=== PATIENT | male | born 1980 | race Two or more races ===

== ENCOUNTER → 2020-03-12 | Outpatient (CLI) | payer OTHER ==
[~2020-03-12] MED LIST: D3 H400T PO; MULTCAP PO; NEUR300C PO; PROZ10CA7 PO; PROZ20CA11 PO; WELLTAB38 PO
== END ==
LOC: EDUNIT# 10:45 → M LABSMTC 10:46
PROVIDERS: ATTEND Anesthesiology
DX: Z03.818 Encounter for observation for suspected exposure to other biological agents ruled out (principal); Z11.59 Encounter for screening for other viral diseases

== ENCOUNTER → 2020-03-14 | Outpatient (CLI) | payer OTHER ==
[2020-03-14 13:04] LABS: HEMATOCRIT 43.3 % (42.0-52.0); HEMOGLOBIN 14.4 g/dl (13.5-17.5); MEAN CORPUSCULAR HEMOGLOBIN 29.2 pg (27.0-33.0); MEAN CORPUSCULAR HGB CONC 33.3 g/dl (32.0-36.5); MEAN CORPUSCULAR VOLUME 87.8 fl (80.0-96.0); PLATELET COUNT, AUTOMATED 281 10^3/uL (150-450); RED BLOOD COUNT 4.93 10^6/uL (4.30-6.10); WHITE BLOOD COUNT 7.5 10^3/uL (4.0-10.0)
--- NOTE | 2020-03-14 13:11 | ECGEPIP ---
[facility] [place] Test Date: 2020-03-14 Pat Name: CYNDY CHAUDHRY Department: Room: - Gender: Male Melt Room Operator: LORELEI : 1980 Requested By: Yanick Purdy Order Number: [id number] Reading MD: Leslie Coe Measurements Intervals Ethel Rate: 48 P: 82 WA: 149 QRS: 53 QRSD: 89 T: 35 QT: 394 QTc: 353 Interpretive Statements SINUS BRADYCARDIA ST ELEVATION, PROBABLY EARLY REPOLARIZATION NO PRIOR Electronically Signed on 03-14-2020 13:10:28 EDT by Leslie Coe
--- NOTE | 2020-03-14 16:22 | REP ---
REASON: History of tuberculosis. There are no priors for comparison. FINDINGS: The superior mediastinal structures are midline. The cardiac silhouette is unremarkable in size, shape, and position. The diaphragmatic surfaces of the lungs are regular, and the costophrenic angles are clear. The pulmonary gutierres are clear. The imaged osseous structures are intact. IMPRESSION: There is no acute cardiopulmonary disease, if clinical suspicion is high CT is more sensitive. Electronically Signed by Carlos Ocampo DO 03/14/2020 04:59 P
== END ==
LOC: M LAB 12:33
PROVIDERS: ATTEND Anesthesiology
DX: M62.9 Disorder of muscle, unspecified (principal)

== ENCOUNTER 2020-03-15 08:19 | Day surgery (SDC) | payer OTHER ==
[~2020-03-15] VITALS: Ht 170.2 cm; Wt 73.0 kg
[~2020-03-15 08:19] MED LIST changes: +LIDOCAINE 2% 100MG/5ML SDV (FOR ANES.) As Ordered ONE; +MIDAZOLAM INJ 2MG/2ML VIAL (J2250 PER 1MG) As Ordered ONE; +ROCURONIUM BROMIDE 50 MG/5 ML VIAL As Ordered ONE; +ceFAZolin SOD 2 GM in IV 1 EA IV ONE; +fentaNYL 250 MCG/5 ML INJECTION (J3010) As Ordered ONE; +propofoL 200 MG/20 ML VIAL As Ordered ONE
[2020-03-15] MEDS ORDERED: EPINEPHrine INJ 1 MG/ML 1ML AMP ONE (08:20)
[2020-03-15] MEDS ORDERED: ROPIvacaine 0.5% 30ML INJECTION (J2795 PER 1MG) ONE (08:20)
[2020-03-15] MEDS ORDERED: dexameTHASONE 10MG/1ML VIAL PRES.FREE (J1100 PER 1MG) ONE (08:20)
[2020-03-15] MEDS ORDERED: MIDAZOLAM INJ 2MG/2ML VIAL (J2250 PER 1MG) As Ordered ONE (09:34)
[2020-03-15] MEDS ORDERED: fentaNYL 100 MCG/2 ML INJECTION (J3010) As Ordered ONE (09:34)
[2020-03-15] MEDS ORDERED: LR 1,000 ML IV ONE (10:00)
[2020-03-15] MEDS ORDERED: EPINEPHrine 1MG/ML INJ 30ML MD-VIAL As Ordered ONE (10:07)
[2020-03-15] MEDS ORDERED: fentaNYL 100 MCG/2 ML INJECTION (J3010) IV SCH (10:30)
[2020-03-15] MEDS ORDERED: MIDAZOLAM INJ 2MG/2ML VIAL (J2250 PER 1MG) IV ONE (10:30)
[2020-03-15] MEDS ORDERED: dexameTHASONE 4 MG/ML 1ML VIAL (J1100 PER 1MG) As Ordered ONE (11:01)
[2020-03-15] MEDS ORDERED: KETOROLAC 60MG 2ML VIAL As Ordered ONE (11:01)
[2020-03-15] MEDS ORDERED: ONDANSETRON 4MG/2ML VIAL As Ordered ONE (11:01)
[2020-03-15] MEDS ORDERED: ACETAMINOPHEN 1000MG 100ML IV BTL (OFIRMEV) (J0131 PER 10MG) As Ordered ONE (11:02)
[2020-03-15] MEDS ORDERED: NEOSTIGMINE 10MG/10ML VIAL (J2710 PER 0.5MG) As Ordered ONE (12:03)
[2020-03-15] MEDS ORDERED: GLYCOPYRROLATE INJ 0.2 MG/ML 2 ML VIAL As Ordered ONE (12:04)
[2020-03-15] MEDS ORDERED: ONDANSETRON 4MG/2ML VIAL IV PRN (13:15)
[2020-03-15] MEDS ORDERED: KETOROLAC 30 MG/ML 1ML VIAL IV PRN (13:15)
[2020-03-15] MEDS ORDERED: METOCLOPRAMIDE INJ 10MG/2ML VIAL (J2765 PER 1) IV PRN (13:15)
[2020-03-15] MEDS ORDERED: LR 1,000 ML IV SCH (13:15)
[2020-03-15] MEDS ORDERED: PERCOCET 5MG/325MG TAB PO PRN (13:15)
[2020-03-15 15:36] VITALS: BP 116/68
--- NOTE | 2020-03-15 20:37 | RO ---
DATE OF PROCEDURE: 03/15/2020 PREOPERATIVE DIAGNOSES: 1. Right shoulder instability. 2. Right shoulder acromioclavicular (AC) joint arthritis. POSTOPERATIVE DIAGNOSES: 1. Right shoulder instability with anterior and posterior labral tearing. 2. Right shoulder glenoid chondromalacia. 3. Right shoulder partial articular rotator cuff tear (subscapularis). 4. Right shoulder acromioclavicular joint arthritis. PROCEDURE: 1. Right shoulder arthroscopic anterior and posterior labral repair. 2. Right shoulder arthroscopic rotator cuff debridement and chondroplasty. 3. Right shoulder arthroscopic distal clavicle excision. SURGEON: Dr. Franklin Tran PHILOSOPHY AND RELIGION INSTRUCTOR: JOSE CARLOS Genao ANESTHESIA: General with preoperative nerve block. IV FLUIDS: Lactated Ringer's. ESTIMATED BLOOD LOSS: 10 mL. IMPLANTS: Arthrex 3 mm SutureTak times one and Arthrex 2.9 mm PushLock times three with labral tape. CLOSURE: Nylon. DESCRIPTION OF PROCEDURE: Patient identified in preoperative holding area. The right shoulder was marked. He had interscalene nerve block. He was brought to the operating room, placed supine on well-padded operating room (OR) table. Examination under general anesthesia revealed 180 degrees forward flexion, 90 of external rotation. He had a grade 2 plus anterior load and shift, grade 2 posterior load and shift. He was then placed in a left side down lateral decubitus position with an axillary roll, and all bony prominences well padded. He was placed in the Arthrex STaR Sleeve lateral decubitus traction hartmann, 10 pounds of traction. Right shoulder prepped and draped in the normal sterile fashion with Chloraprep. He received appropriate IV antibiotics within 1 hour of incision. Prior to incision time-out performed per hospital protocol. Radha was present for the entire procedure and participated in all essential portions of the procedure. This included patient positioning, draping, holding the arthroscope, providing traction to the arm to assist with drilling and passing sutures and tying knots. She also performed the wound closure and applied the dressing and sling. The right shoulder was insufflated with lactated Ringer's. Modified posterolateral portal made with #11 blade. 30-degree arthroscope was introduced into the joint. Diagnostic arthroscopy was carried out revealing an intact infra and supraspinatus. There was partial tearing of the upper border of the subscapularis but no lift off. Long head of the biceps was unremarkable. There was chondromalacia of the inferior and anterior glenoid. Humeral head in good condition. There was tearing of the anterior-inferior labrum with an absent bumper. There was deficient tissue anteriorly as well. The labral tearing extended around the 6 o'clock position towards the 8 o'clock, 8:30 position. An anterior working portal was established through the rotator interval just off the subscapularis. On probing the long head of the biceps, the superior labral anchor was stable. I performed a chondroplasty of the glenoid, and I debrided the partial tear of the upper subscapularis. This did not meet criteria for repair. There was a positive drive-through sign. Humeral head was subluxated inferiorly and somewhat anterior. An accessory superolateral portal was established through the rotator interval just anterior to the biceps. Hooked cautery was used to develop the plane between labrum and articular cartilage. Labral elevators then used to mobilize the capsule and labrum off the anterior glenoid neck. There was decent tissue anterior-inferior, but at the equator, the tissue quality was poor. I then drilled and placed a 3 mm SutureTak at the 5 o'clock position. A SutureLasso was used to pass all four limbs of suture through the anterior capsule and labrum with the most inferior sutures grasping the anterior band of the inferior glenohumeral ligament. Sutures were tied using alternating half-hitch technique with the knot pusher as my case assistant applied a posterior lever push to the proximal humerus. Sutures were cut with the bias binding cutter. This nicely restored the anterior-inferior bumper. Next, the SutureLasso was used to shuttle labral tape through the capsule and labrum at the 3:30 position. The appropriate drill was used to create a socket in the glenoid, the anchor was tensioned, advanced and then malleted per routine with excellent fixation. The patient did not have a history of a traumatic dislocation despite his symptoms of instability and given the deficient anterior-superior capsule, there really was no need for a third anchor. The camera was placed in the anterior-superior portal and then the posterior inferior labrum was inspected. There was a definite tear there with deficient bumper. Hooked cautery was used through the posterior portal to develop a plane between labrum and cartilage, and then the labral elevators used to subperiosteally dissect and mobilize the tissue. Curved SutureLasso was used to shuttle labral tape through the capsule and labrum at the 6 o'clock position, and I drilled at the 6:30 position. PushLock anchor was secured per routine. I took great care not to grasp too much capsule to avoid over tightening. These steps were repeated shuttling labral tape through capsule and labrum at the 7:30 position. Another PushLock anchor was placed per routine with excellent fixation. This completed the posterior portion of labral repair. Humeral head was centrally located on the glenoid. Shoulder was irrigated and drained. Arthroscope placed in the subacromial space, lateral working portal established, and an extensive bursectomy performed with shaver and cautery. There was minimal subacromial spur, no acromioplasty. Attention was then turned to the distal clavicle excision. There was near bone on bone contact, so cautery was used to clear soft tissue off of the AC joint and then a bur used to remove approximately 7 to 8 mm of the distal clavicle. The scope was intermittently placed into the anterior portal to ensure no posterior or superior bone remained. Shoulder was then irrigated and drained. Portals were closed with a nylon suture. Bulky sterile dressing applied. He was then carefully placed into the ARC 2 sling in the gunslinger position. He was extubated, transferred to the post-anesthesia care unit (PACU) in stable condition. DISPOSITION: The patient will be in the sling all the time for the first roughly 5 weeks. His physical therapy must start the week of March 25, 2020. He will follow up for suture removal and then a month later.
== END 2020-03-15 16:10 | disposition home or self-care (01) ==
LOC: M SDC 08:19
PROVIDERS: ATTEND Orthopaedic Surgery
DX: S43.431A Superior glenoid labrum lesion of right shoulder, initial encounter (principal); M94.211 Chondromalacia, right shoulder; M19.011 Primary osteoarthritis, right shoulder; M75.111 Incomplete rotator cuff tear or rupture of right shoulder, not specified as traumatic; F43.10 Post-traumatic stress disorder, unspecified; F41.9 Anxiety disorder, unspecified; F32.9 Major depressive disorder, single episode, unspecified; G47.30 Sleep apnea, unspecified; Z79.899 Other long term (current) drug therapy; X58.XXXA Exposure to other specified factors, initial encounter; Y92.89 Other specified places as the place of occurrence of the external cause; Y93.9 Activity, unspecified; Y99.9 Unspecified external cause status
CPT/HCPCS: 29806; 29807; 29823; 29824; 64415; C1713; J0131; J0171; J0690; J1100; J1885; J2250; J2405; J2710; J2795; J3010

== ENCOUNTER → 2020-08-16 | Outpatient (CLI) | payer OTHER ==
[~2020-08-16] MED LIST changes: -LIDOCAINE 2% 100MG/5ML SDV (FOR ANES.) As Ordered ONE; -MIDAZOLAM INJ 2MG/2ML VIAL (J2250 PER 1MG) As Ordered ONE; -ROCURONIUM BROMIDE 50 MG/5 ML VIAL As Ordered ONE; -ceFAZolin SOD 2 GM in IV 1 EA IV ONE; -fentaNYL 250 MCG/5 ML INJECTION (J3010) As Ordered ONE; -propofoL 200 MG/20 ML VIAL As Ordered ONE
[2020-08-16 12:05] LABS: PLATELET COUNT, AUTOMATED 271 10^3/uL (150-450)
[2020-08-16 12:16] LABS: INR 0.95; PROTHROMBIN TIME 12.9 SECONDS (12.5-14.3)
[2020-08-16 12:17] LABS: PARTIAL THROMBOPLASTIN TIME 33.5 SECONDS (24.2-38.5)
== END ==
LOC: M LAB 11:30
PROVIDERS: ATTEND Physician Assistant
DX: M50.222 Other cervical disc displacement at C5-C6 level (principal)